=== PATIENT | female | born 1990 | race African-American/Black ===

== ENCOUNTER 2017-07-31 15:05 | Emergency (ER) | payer OTHER ==
[~2017-07-31] VITALS: Ht 167.6 cm; Wt 65.8 kg
[~2017-07-31 15:05] MED LIST: CEPH-264 PO; METO10TA81 PO; POLY17PO29 PO
[2017-07-31 15:34] LABS: BILIRUBIN,URINE NEGATIVE (NEG); GLUCOSE,URINE NEGATIVE (NEG); NITRITE,URINE NEGATIVE (NEG); PH,URINE 6.5; PROTEIN,URINE NEGATIVE (NEG-TRACE); UROBILINOGEN,URINE 0.2 mg/dL (0.2 mg/dL)
[2017-07-31 15:48] LABS: BACTERIA,URINE MODERATE /HPF (0-FEW); RBC,URINE 0 /HPF (0-2); SQUAMOUS EPITHELIAL CELL,UR OCC /LPF
[2017-07-31] MEDS ORDERED: IV NORMAL SALINE 1000ML BAG 1,000 ML IV ONE (16:00)
[2017-07-31 16:12] LABS: BASO % 0 % (0-3); EOS % 0 % (0-3); HEMATOCRIT 34.7 % (36.0-47.0); HEMOGLOBIN 11.4 g/dL (12.0-15.5); LYMPH # 1.3 x10^3/uL (1.0-4.8); LYMPH % 18 % (24-48); MEAN CORPUSCULAR HEMOGLOBIN 27 pg (25-35); MEAN CORPUSCULAR HGB CONC 33 g/dL (31-37); MEAN CORPUSCULAR VOLUME 82 fL (79-100); MONO % 10 % (0-9); NEUT % 72 % (31-73); PLATELET COUNT 326 x10^3/uL (140-400); RED BLOOD COUNT 4.21 x10^6/uL (3.50-5.40); WHITE BLOOD COUNT 7.4 x10^3/uL (4.0-11.0)
[2017-07-31 16:27] LABS: CALCIUM 8.9 mg/dL (8.5-10.1); CREATININE 0.8 mg/dL (0.6-1.0); GFR 106.6; POTASSIUM 3.3 mmol/L (3.5-5.1)
[2017-07-31 16:32] LABS: ALBUMIN 3.1 g/dL (3.4-5.0); ALBUMIN/GLOBULIN RATIO 0.8 (1.0-1.7); TOTAL BILIRUBIN 0.2 mg/dL (0.2-1.0); TOTAL PROTEIN 7.1 g/dL (6.4-8.2)
--- NOTE | 2017-07-31 17:26 | RAD ---
OB ultrasound less than 14 weeks 07/31/2017 Clinical history: First trimester with abdominal pain. Technique: Using the distended urinary bladder as a sonographic window, a real-time ultrasound examination of the pelvis was performed. Multiple images were obtained. FINDINGS: A gestational sac is seen within the endometrial canal near the fundus/body of the uterus. Within this gestational sac a yolk sac and associated embryonic pole are seen. The CRL of this embryonic pole measures 1 cm. This corresponds to an estimated gestational age by ultrasound of 7 weeks 1 day plus or minus a standard deviation of 4 days. The estimated date of delivery by ultrasound is 03/18/2018. Embryonic cardiac activity is seen with a heart rate of 150 bpm. The uterus is otherwise within normal limits. Both ovaries are within normal limits in size and echogenicity. The right ovary measures 3.9 x 2.5 x 1.9 cm in longitudinal, transverse, and AP dimensions. The left ovary measures 4.2 x 3.4 x 1.5 cm in size. A small amount of free fluid is seen adjacent to the left ovary. IMPRESSION: Single living IUP with an estimated gestational age by ultrasound of 7 weeks 1 day plus or minus a standard deviation of 4 days. The estimated date of delivery by ultrasound of 03/18/2018. Electronically signed by: Jake Reich MD (07/31/2017 5:22 PM) [facility]
[2017-07-31 18:00] VITALS: BP 95/51
[2017-07-31] MEDS ORDERED: ONDA4TAB7 PO (18:06)
[2017-07-31] MEDS ORDERED: CEPH-264 PO (18:06)
[2017-07-31] MEDS ORDERED: METR500T8 PO (18:06)
[2017-07-31] MEDS ORDERED: DOCU-109 PO (18:06)
[2017-07-31] MEDS ORDERED: metroNIDAZOLE 500 MG TABLET PO ONE (18:15)
[2017-07-31] MEDS ORDERED: CEPHALEXIN 250 MG CAPSULE. PO ONE (18:15)
--- NOTE | 2017-07-31 18:38 | ED.ADGEN ---
Past Medical History Past Medical History: No Pertinent History Past Surgical History: No Surgical History Alcohol Use: None Drug Use: None Adult General Chief Complaint Chief Complaint: ABDOMINAL PAIN IN HPI HPI Patient is a 26 year old woman, , approximately 7 weeks by dates , who presents to the emergency department with a complaint of abdominal cramping, vaginal discharge, and dysuria for the past 5-7 days. 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 She denies any bleeding, any passage of fluid or tissue. Denies any back pain, any fevers or chills, any injuries, states that she has intermittent nausea and occasional vomiting, and also constipation. She denies any, locations with her previous . She delivered vaginally without issue. She states she is taking vitamins. States she was last sexually active about a week ago. Does have a history of bacterial vaginosis and urinary tract infection, states "it feels like it could be that again". No concerns for STD exposures, no history of other infections. She last had a full Pap smear and pelvic examination performed in April of this year. No concerning findings identified at that time. Denies any other health history, or other complaints. Review of Systems Review of Systems Constitutional: Denies fever or chills. [] Eyes: Denies change in visual acuity. [] HENT: Denies nasal congestion or sore throat. [] Respiratory: Denies cough or shortness of breath. [] Cardiovascular: Denies chest pain or edema. [] GI: Lower abdominal cramping, associated with dysuria, discharge from the vagina , occasional nausea and vomiting, no bloody stools or diarrhea. Positive for constipation. : Denies dysuria. [] Musculoskeletal: Denies back pain or joint pain. [] Integument: Denies rash. [] Neurologic: Denies headache, focal weakness or sensory changes. [] Endocrine: Denies polyuria or polydipsia. [] Lymphatic: Denies swollen glands. [] Psychiatric: Denies depression or anxiety. [] Current Medications Current Medications Current Medications Medications (Trade) Dose Ordered Sig/Armaan Start Time Stop Time Status Last Admin Dose Admin Cephalexin HCl (Keflex) 500 mg 1X ONCE 07/31/17 18:15 07/31/17 18:16 DC 07/31/17 18:04 500 MG Metronidazole (Flagyl) 500 mg 1X ONCE 07/31/17 18:15 07/31/17 18:16 DC 07/31/17 18:04 500 MG Sodium Chloride 1,000 ml @ 1,000 mls/hr 1X ONCE 07/31/17 16:00 07/31/17 16:59 DC 07/31/17 16:00 1,000 MLS/HR Allergies Allergies Allergies Coded Allergies Type Severity Reaction Last Updated Verified No Known Drug Allergies 08/04/16 No Physical Exam Physical Exam Constitutional: Well developed, well nourished, no acute distress, non-toxic appearance. [] HENT: Normocephalic, atraumatic, bilateral external ears normal, oropharynx moist, no oral exudates, nose normal. [] Eyes: PERRLA, EOMI, conjunctiva normal, no discharge. [] Neck: Normal range of motion, no tenderness, supple, no stridor. [] Cardiovascular:Heart rate regular rhythm, no murmur [] Lungs & Thorax: Bilateral breath sounds clear to auscultation [] Abdomen: Bowel sounds normal, soft, no tenderness, no masses, no pulsatile masses. [] Skin: Warm, dry, no erythema, no rash. [] Back: No tenderness, no CVA tenderness. [] Extremities: No tenderness, no cyanosis, no clubbing, ROM intact, no edema. [] Neurologic: Alert and oriented X 3, normal motor function, normal sensory function, no focal deficits noted. [] Psychologic: Affect normal, judgement normal, mood normal. [] Current Patient Data Vital Signs Vital Signs Date Time Temp Pulse Resp B/P (MAP) Pulse Ox O2 Delivery O2 Flow Rate FiO2 07/31/17 18:00 83 95/51 (66) Room Air 07/31/17 17:00 100 07/31/17 15:15 98.7 16 98.7 Lab Values Laboratory Tests Test 07/31/17 15:21 07/31/17 15:23 07/31/17 15:28 Urine Color Yellow Urine Clarity Clear Urine pH 6.5 Urine Specific [place] 1.020 Urine Protein Negative mg/dL (NEG-TRACE) Urine Glucose (UA) Negative mg/dL (NEG) Urine Ketones (Stick) Negative mg/dL (NEG) Urine Blood Negative (NEG) Urine Nitrite Negative (NEG) Urine Bilirubin Negative (NEG) Urine Urobilinogen Dipstick 0.2 mg/dL (0.2 mg/dL) Urine Leukocyte Esterase Negative (NEG) Urine RBC 0 /HPF (0-2) Urine WBC 1-4 /HPF (0-4) Urine Squamous Epithelial Cells Occ /LPF Urine Bacteria Moderate /HPF (0-FEW) Urine Mucus Mod /LPF POC Urine HCG, Qualitative Hcg positive (Negative) White Blood Count 7.4 x10^3/uL (4.0-11.0) Red Blood Count 4.21 x10^6/uL (3.50-5.40) Hemoglobin 11.4 g/dL (12.0-15.5) L Hematocrit 34.7 % (36.0-47.0) L Mean Corpuscular Volume 82 fL (79-100) Mean Corpuscular Hemoglobin 27 pg (25-35) Mean Corpuscular Hemoglobin Concent 33 g/dL (31-37) Red Cell Distribution Width 14.0 % (11.5-14.5) Platelet Count 326 x10^3/uL (140-400) Neutrophils (%) (Auto) 72 % (31-73) Lymphocytes (%) (Auto) 18 % (24-48) L Monocytes (%) (Auto) 10 % (0-9) H Eosinophils (%) (Auto) 0 % (0-3) Basophils (%) (Auto) 0 % (0-3) Neutrophils # (Auto) 5.3 x10^3uL (1.8-7.7) Lymphocytes # (Auto) 1.3 x10^3/uL (1.0-4.8) Monocytes # (Auto) 0.7 x10^3/uL (0.0-1.1) Eosinophils # (Auto) 0.0 x10^3/uL (0.0-0.7) Basophils # (Auto) 0.0 x10^3/uL (0.0-0.2) Maternal Serum HCG Beta Subunit [id number] mIU/mL (0-5) H Sodium Level 138 mmol/L (136-145) Potassium Level 3.3 mmol/L (3.5-5.1) L Chloride Level 103 mmol/L (98-107) Carbon Dioxide Level 23 mmol/L (21-32) Anion Gap 12 (6-14) Blood Urea Nitrogen 9 mg/dL (7-20) Creatinine 0.8 mg/dL (0.6-1.0) Estimated GFR (Cockcroft-Gault) 106.6 BUN/Creatinine Ratio 11 (6-20) Glucose Level 92 mg/dL (70-99) Calcium Level 8.9 mg/dL (8.5-10.1) Total Bilirubin 0.2 mg/dL (0.2-1.0) Aspartate Amino Transferase (AST) 15 U/L (15-37) Alanine Aminotransferase (ALT) 21 U/L (14-59) Alkaline Phosphatase 83 U/L (46-116) Total Protein 7.1 g/dL (6.4-8.2) Albumin 3.1 g/dL (3.4-5.0) L Albumin/Globulin Ratio 0.8 (1.0-1.7) L Lipase 141 U/L (73-393) Laboratory Tests 07/31/17 15:28 Laboratory Tests 07/31/17 15:28 Microbiology 07/31/17 Wet Prep - Final, Complete EKG EKG Not indicated.[] Radiology/Procedures Radiology/Procedures [][facility] [address] [place] [address] IMAGING REPORT Signed PATIENT: NEIL ABURTO ACCOUNT: [id number] : 1990 LOCATION: ER AGE: 26 SEX: F EXAM STATUS: REG ER ORD. PHYSICIAN: BRUCE ALCOCER DO REASON: abd pain preg PROCEDURE: OB < 14 WKS OB ultrasound less than 14 weeks 07/31/2017 Clinical history: First trimester with abdominal pain. Technique: Using the distended urinary bladder as a sonographic window, a real-time ultrasound examination of the pelvis was performed. Multiple images were obtained. FINDINGS: A gestational sac is seen within the endometrial canal near the fundus/body of the uterus. Within this gestational sac a yolk sac and associated embryonic pole are seen. The CRL of this embryonic pole measures 1 cm. This corresponds to an estimated gestational age by ultrasound of 7 weeks 1 day plus or minus a standard deviation of 4 days. The estimated date of delivery by ultrasound is 03/18/2018. Embryonic cardiac activity is seen with a heart rate of 150 bpm. The uterus is otherwise within normal limits. Both ovaries are within normal limits in size and echogenicity. The right ovary measures 3.9 x 2.5 x 1.9 cm in longitudinal, transverse, and AP dimensions. The left ovary measures 4.2 x 3.4 x 1.5 cm in size. A small amount of free fluid is seen adjacent to the left ovary. IMPRESSION: Single living IUP with an estimated gestational age by ultrasound of 7 weeks 1 day plus or minus a standard deviation of 4 days. The estimated date of delivery by ultrasound of 03/18/2018. Electronically signed by: Jake Reich MD (07/31/2017 5:22 PM) [facility] DICTATED and SIGNED BY: JAKE REICH MD DATE: 07/31/17 1718 CC: BRUCE ALCOCER DO; CLIVE YOUNG ~ Course & Med Decision Making Course & Med Decision Making Pertinent Labs and Imaging studies reviewed. (See chart for details) Patient well-appearing, not experiencing any pain during my evaluation, os is closed, pelvic examination obtained without issue, reveals evidence of clue cells present with bacterial vaginosis, also noted to have bacteria in the urine. Patient's ultrasound revealed a single intrauterine with heart tones in the 150s, at 7 weeks 1 day estimated. Printout of ultrasound results given to patient. Patient was treated with metronidazole and Keflex in the ED, additionally, advised use of Zofran, Colace, and importance of staying well-hydrated. Noted to have a potassium of 3.3, given dietary recommendations, instructed discuss this with her primary care provider, also discussed utility of small meals throughout the day. To continue vitamins. Given instructions on first trimester abdominal pain. Patient tolerated first dose medication the ED without issue, discharged home with prescriptions, instructions, precautions as stated, to follow-up on Thursday with her primary care provider, and to return to the ED with concerning symptoms as stated. Dragon Disclaimer Dragon Disclaimer This electronic medical record was generated, in whole or in part, using a voice recognition dictation system. Departure Impression: Primary Impression: Bacterial vaginosis Additional Impressions: Constipation UTI (urinary tract infection) Abdominal pain during in first trimester Disposition: HOME, SELF-CARE Condition: IMPROVED Scripts Docusate Sodium (COLACE) 100 Mg Capsule 100 MG PO BID, #30 CAP Prov: BRUCE ALCOCER DO 07/31/17 Ondansetron Hcl (ZOFRAN) 4 Mg Tablet 1 TAB PO PRN Q8HRS Y for NAUSEA, #12 TAB Prov: BRUCE ALCOCER DO 07/31/17 Cephalexin (KEFLEX) 500 Mg Capsule 1 CAP PO BID, #14 CAP Prov: BRUCE ALCOCER DO 07/31/17 Metronidazole (METRONIDAZOLE) 500 Mg Tablet 1 TAB PO BID, #14 TAB Prov: BRUCE ALCOCER DO 07/31/17 Problem Qualifiers BRUCE ALCOCER DO Jul 31, 2017 18:37
== END 2017-07-31 18:43 | disposition home or self-care (01) ==
LOC: ER 15:05
DX: O23.41 Unspecified infection of urinary tract in pregnancy, first trimester (principal); O23.591 Infection of other part of genital tract in pregnancy, first trimester; N76.0 Acute vaginitis; B96.89 Other specified bacterial agents as the cause of diseases classified elsewhere; K59.00 Constipation, unspecified; Z3A.01 Less than 8 weeks gestation of pregnancy
CPT/HCPCS: 36415; 76801; 80053; 81001; 81025; 83690; 84702; 85025; 87086; 87491; 87591; 96360; 96361; 99285; J7030; Q0111

== ENCOUNTER 2019-02-15 21:59 | Emergency (ER) | payer SELFPAY ==
[~2019-02-15] VITALS: Ht 170.2 cm; Wt 68.3 kg
[~2019-02-15 21:59] MED LIST changes: +DOCU-109 PO; +METR-34 PO; +ONDA4TAB7 PO
[2019-02-15 22:25] VITALS: BP 137/60
[2019-02-15 22:30] LABS: BILIRUBIN,URINE NEGATIVE (NEG); CLARITY,URINE CLEAR; COLOR,URINE YELLOW; NITRITE,URINE NEGATIVE (NEG); PH,URINE 5.5; PROTEIN,URINE 30 mg/dL (NEG-TRACE); UROBILINOGEN,URINE 0.2 mg/dL (0.2 mg/dL)
[2019-02-15 22:49] LABS: BACTERIA,URINE FEW /HPF (0-FEW); SQUAMOUS EPITHELIAL CELL,UR MOD /LPF
--- NOTE | 2019-02-15 23:29 | RAD ---
OB TRANSVAG History: Abdominal pain in Comparison: None. Findings: Multiple transvaginal sonographic images of pelvis are submitted. Uterus measured 8.9 x 4.5 x 4.5 cm. There is a focus of hypoechogenicity in the uterus. If this is indeed a gestational sac, mean sac dimension of 0.5 cm corresponds with 5 weeks 2 days. Adjusted ultrasound age is 5 weeks 2 days with estimated delivery date of 10/16/2019. LMP age is 5 weeks 3 days with estimated delivery date of 10/15/2019. No cardiac activity or pole is this time. No yolk sac is visualized. Left ovary measured 1.9 x 2.2 x 1.5 cm with normal low resistance vascularity. Right ovary measured 2.1 x 3.5 x 2.4 cm with normal low resistance vascularity. There is a hypoechoic lesion of the right ovary about 1.7 x 1.3 x 1.8 cm. There is minimal free fluid in the pelvis. Impression: 1. There is a focus of hypoechogenicity in the uterus. This could be an early gestational sac although no visible yolk sac or pole at this time for which correlation with quantitative beta hCG values and short-term follow-up imaging if needed is recommended. 2. There is right ovarian cyst. There is minimal free fluid. Electronically signed by: Oleg Merchant MD (02/15/2019 11:26 PM) [facility]
--- NOTE | 2019-02-16 00:04 | PHYS DOC ---
Past Medical History Past Medical History: No Pertinent History (AILEEN COLLADO APRN) Past Surgical History: No Surgical History (AILEEN COLLADO APRN) Alcohol Use: None Drug Use: None (AILEEN COLLADO APRN) Adult General Chief Complaint Chief Complaint: ABDOMINAL PAIN HPI HPI Patient is a 28 year old female who presents to the ED today complaining of 8 out of 10 low back pain and low abdominal cramping that began a week ago. P atient states symptoms are intermittent. Denies any concerns for STDs. Denies any nausea vomiting, denies any vaginal bleeding, denies any vaginal discharge, denies any chance she is though she states her last menstrual cycle was around January 08, 2019. She states her cycles are irregular. (AILEEN COLLADO APRN) Review of Systems Review of Systems Constitutional: Denies fever or chills [] Eyes: Denies change in visual acuity, redness, or eye pain [] HENT: Denies nasal congestion or sore throat [] Respiratory: Denies cough or shortness of breath [] Cardiovascular: No additional information not addressed in HPI [] GI: Reports abdominal cramping, denies nausea, vomiting, bloody stools or diarrhea [] : Denies dysuria or hematuria [] Musculoskeletal reports back pain, Integument: Denies rash or skin lesions [] Neurologic: Denies headache, focal weakness or sensory changes [] All other systems were reviewed and found to be within normal limits, except as documented in this note. (AILEEN COLLADO APRN) Allergies Allergies Allergies Coded Allergies Type Severity Reaction Last Updated Verified No Known Drug Allergies 08/04/16 No (MOE MENEZES MD) Physical Exam Physical Exam Constitutional: Well developed, well nourished, no acute distress, non-toxic appearance. [] HENT: Normocephalic, atraumatic, bilateral external ears normal, oropharynx moist, no oral exudates, nose normal. [] Eyes: PERRLA, EOMI, conjunctiva normal, no discharge. [] Neck: Normal range of motion, no tenderness, supple, no stridor. [] Cardiovascular:Heart rate regular rhythm, no murmur [] Lungs & Thorax: Bilateral breath sounds clear to auscultation [] Abdomen: Bowel sounds normal, soft, no tenderness, no masses, no pulsatile masses. [] Skin: Warm, dry, no erythema, no rash. [] Back: No tenderness, no CVA tenderness. [] Extremities: No tenderness, no cyanosis, no clubbing, ROM intact, no edema. [] Neurologic: Alert and oriented X 3, normal motor function, normal sensory function, no focal deficits noted. [] Psychologic: Affect normal, judgement normal, mood normal. [] (AILEEN COLLADO APRN) Current Patient Data Vital Signs Vital Signs Date Time Temp Pulse Resp B/P (MAP) Pulse Ox O2 Delivery O2 Flow Rate FiO2 02/15/19 22:25 98.6 95 16 137/60 (85) 99 Room Air 98.6 (MOE MENEZES MD) Lab Values Laboratory Tests Test 02/15/19 22:08 02/15/19 22:16 Urine Collection Type Unknown Urine Color Yellow Urine Clarity Clear Urine pH 5.5 Urine Specific [place] >=1.030 Urine Protein 30 mg/dL (NEG-TRACE) Urine Glucose (UA) Negative mg/dL (NEG) Urine Ketones (Stick) Negative mg/dL (NEG) Urine Blood Negative (NEG) Urine Nitrite Negative (NEG) Urine Bilirubin Negative (NEG) Urine Urobilinogen Dipstick 0.2 mg/dL (0.2 mg/dL) Urine Leukocyte Esterase Trace (NEG) Urine RBC 1-2 /HPF (0-2) Urine WBC 1-4 /HPF (0-4) Urine Squamous Epithelial Cells Mod /LPF Urine Bacteria Few /HPF (0-FEW) Urine Mucus Marked /LPF POC Urine HCG, Qualitative Hcg positive (Negative) (MOE MENEZES MD) EKG EKG [] (AILEEN COLLADO APRN) Radiology/Procedures Radiology/Procedures []PROCEDURE: OB TRANSVAG OB TRANSVAG History: Abdominal pain in Comparison: None. Findings: Multiple transvaginal sonographic images of pelvis are submitted. Uterus measured 8.9 x 4.5 x 4.5 cm. There is a focus of hypoechogenicity in the uterus. If this is indeed a gestational sac, mean sac dimension of 0.5 cm corresponds with 5 weeks 2 days. Adjusted ultrasound age is 5 weeks 2 days with estimated delivery date of 10/16/2019. LMP age is 5 weeks 3 days with estimated delivery date of 10/15/2019. No cardiac activity or pole is this time. No yolk sac is visualized. Left ovary measured 1.9 x 2.2 x 1.5 cm with normal low resistance vascularity. Right ovary measured 2.1 x 3.5 x 2.4 cm with normal low resistance vascularity. There is a hypoechoic lesion of the right ovary about 1.7 x 1.3 x 1.8 cm. There is minimal free fluid in the pelvis. Impression: 1. There is a focus of hypoechogenicity in the uterus. This could be an early gestational sac although no visible yolk sac or pole at this time for which correlation with quantitative beta hCG values and short-term follow-up imaging if needed is recommended. 2. There is right ovarian cyst. There is minimal free fluid. Electronically signed by: Aamir Sung MD (02/15/2019 11:26 PM) [facility] DICTATED and SIGNED BY: AAMIR SUNG MD DATE: 02/15/19 2326 (AILEEN COLLADO APRN) Course & Med Decision Making Course & Med Decision Making Pertinent Labs and Imaging studies reviewed. (See chart for details) This is a 28-year-old female patient presented to the ED today with complaints of abdominal cramping and low back pain, symptoms for week. Last menstrual cycle was January 08, 2019, patient denies any chance she is , positive urine hCG, urine analysis is noted for trace amount of leukocytes though the urine is contaminated with squamous cells epithelium. Urine also shows patient is dehydrated. Patient was encouraged to push fluids. OB ultrasound was noted for IUP, 5 weeks 2 days,no visible yolk sac or pole at this time for which correlation with quantitative beta hCG values and short-term follow-up imaging if needed is recommended. I had ordered labs on patient, initially she was very disappointed with the news of being because she already has 2 children. When she had the ultrasound done and was informed she is 5 weeks 2 days , she was happy with the news and requested to be discharged before the labs are done. Encouraged her to follow-up with her own [employer] SAL[employer] in the course of 7 days. Instructed to take Tylenol as needed for pain. (AILEEN COLLADO APRN) Course & Med Decision Making Staff Physician Addendum: I was working in the ER during the course of this patient's visit. I was available for consultation as needed, but I was not directly involved in the care of this patient. (MOE MENEZES MD) Dragon Disclaimer Dragon Disclaimer This electronic medical record was generated, in whole or in part, using a voice recognition dictation system. (AILEEN COLLADO APRN) Departure Departure Impression: Primary Impression: Abdominal pain in Additional Impressions: Low back pain during Disposition: 01 HOME, SELF-CARE Condition: STABLE Referrals: NO PCP (PCP) Follow-up in 1-2 weeks Patient Instructions: ABCs of Additional Instructions: You were evaluated in the emergency room, your test was positive. Congratulations. Please follow up with an OBGYN as soon as you can. Follow up with take Tylenol as needed for pain. Return to the emergency room at any point symptoms worsen. Consider vitamins. Problem Qualifiers Primary Impression: Abdominal pain in Trimester: first trimester Qualified Codes: O26.891 - Other specified related conditions, first trimester; R10.9 - Unspecified abdominal pain Additional Impressions: Low back pain during Trimester: first trimester Qualified Codes: O26.891 - Other specified related conditions, first trimester; M54.5 - Low back pain Weeks of gestation: less than 8 weeks Qualified Codes: Z3A.01 - Less than 8 weeks gestation of AILEEN COLLADO APRN Feb 16, 2019 00:04 MOE MENEZES MD Feb 16, 2019 21:43
== END 2019-02-16 00:32 | disposition home or self-care (01) ==
LOC: ER 21:59
DX: O34.81 Maternal care for other abnormalities of pelvic organs, first trimester (principal); N83.201 Unspecified ovarian cyst, right side; M54.5 Low back pain; E86.0 Dehydration; Z3A.01 Less than 8 weeks gestation of pregnancy
CPT/HCPCS: 76817; 81001; 81025; 99285-25

== ENCOUNTER 2019-03-07 12:23 | Emergency (ER) | payer OTHER ==
[~2019-03-07] VITALS: Ht 167.6 cm; Wt 69.2 kg
[2019-03-07 13:00] VITALS: BP 111/57
--- NOTE | 2019-03-07 13:02 | PHYS DOC ---
Past Medical History Past Medical History: No Pertinent History Past Surgical History: No Surgical History Alcohol Use: None Drug Use: None Adult General Chief Complaint Chief Complaint: VAGINAL BLEEDING [facility] HPI Patient is a 28 year old female presents to the ED complaining of rectal bleeding after having a bowel movement this morning. Patient is 8 weeks . . States that she has been constipated and had a large bowel movement today and had some rectal bleeding afterwards. States that the bleeding was on the toliet paper with a couple drops in the toilet. No active bleeding and no vaginal bleeding. Patient is unsure if she has hemorrhoids. Denies vaginal discharge/vaginal bleeding, dysuria, hematuria, abdominal pain, nausea/vomiting, diarrhea, fever or headache. Review of Systems Review of Systems Constitutional: Denies fever or chills [] Eyes: Denies change in visual acuity, redness, or eye pain [] HENT: Denies nasal congestion or sore throat [] Respiratory: Denies cough or shortness of breath [] Cardiovascular: No additional information not addressed in HPI [] GI: Denies abdominal pain, nausea, vomiting, bloody stools or diarrhea [] : Denies dysuria or hematuria [] Musculoskeletal: Denies back pain or joint pain [] Integument: Denies rash or skin lesions [] Neurologic: Denies headache, focal weakness or sensory changes [] All other systems were reviewed and found to be within normal limits, except as documented in this note. Allergies Allergies Allergies Coded Allergies Type Severity Reaction Last Updated Verified No Known Drug Allergies 08/04/16 No Physical Exam Physical Exam Constitutional: Well developed, well nourished, no acute distress, non-toxic appearance. [] HENT: Normocephalic, atraumatic Cardiovascular:Heart rate regular rhythm, no murmur [] Lungs & Thorax: Bilateral breath sounds clear to auscultation [] Abdomen: Bowel sounds normal, soft, no tenderness, no masses, no pulsatile masses. [] Rectal: External hemorrhoid. No thrombosis. No bleeding. Skin: Warm, dry, no erythema, no rash. [] Back: No tenderness, no CVA tenderness. [] Extremities: No tenderness, no cyanosis, no clubbing, ROM intact, no edema. [] Neurologic: Alert and oriented X 3, normal motor function, normal sensory function, no focal deficits noted. [] Psychologic: Affect normal, judgement normal, mood normal. [] Current Patient Data Vital Signs Vital Signs Date Time Temp Pulse Resp B/P (MAP) Pulse Ox O2 Delivery O2 Flow Rate FiO2 03/07/19 13:00 70 16 111/57 (75) 99 Room Air 03/07/19 12:25 98.1 98.1 Lab Values Laboratory Tests Test 03/07/19 12:45 Urine Collection Type Unknown Urine Color Yellow Urine Clarity Clear Urine pH 5.5 Urine Specific [place] >=1.030 Urine Protein Negative mg/dL (NEG-TRACE) Urine Glucose (UA) Negative mg/dL (NEG) Urine Ketones (Stick) Negative mg/dL (NEG) Urine Blood Negative (NEG) Urine Nitrite Negative (NEG) Urine Bilirubin Negative (NEG) Urine Urobilinogen Dipstick 0.2 mg/dL (0.2 mg/dL) Urine Leukocyte Esterase Negative (NEG) Urine RBC Occ /HPF (0-2) Urine WBC 1-4 /HPF (0-4) Urine Squamous Epithelial Cells Mod /LPF Urine Bacteria Few /HPF (0-FEW) Urine Mucus Marked /LPF EKG EKG [] Radiology/Procedures Radiology/Procedures [] Course & Med Decision Making Course & Med Decision Making Pertinent Labs and Imaging studies reviewed. (See chart for details) []Discussed lab findings with patient. Patient's exam shows that she has external hemorrhoid. No thrombosis or active bleeding. Patient had no vaginal bleeding or related symptoms. We'll treat outpatient with Anusol. Discussed symptomatic treatment and follow-up with [facility] [facility] this week. Provided contact information/education. Discussed reasons to return to the ED. Patient understands and agrees with plan. Dragon Disclaimer Dragon Disclaimer This electronic medical record was generated, in whole or in part, using a voice recognition dictation system. Departure Departure Impression: Primary Impression: Hemorrhoids Disposition: HOME, SELF-CARE Condition: STABLE Referrals: NO PCP (PCP) KYLE HAMMONDS Jr, MD Patient Instructions: Hemorrhoids Scripts Hydrocortisone (ANUSOL-HC) 30 Gm Cream..g. 1 SOFI TP BID, #30 GM 0 Refills Prov: GIULIA EMERY 03/07/19 GIULIA EMERY Mar 07, 2019 13:02
[2019-03-07 13:10] LABS: BILIRUBIN,URINE NEGATIVE (NEG); CLARITY,URINE CLEAR; COLOR,URINE YELLOW; NITRITE,URINE NEGATIVE (NEG); PH,URINE 5.5; PROTEIN,URINE NEGATIVE (NEG-TRACE); UROBILINOGEN,URINE 0.2 mg/dL (0.2 mg/dL)
[2019-03-07 13:19] LABS: SQUAMOUS EPITHELIAL CELL,UR MOD /LPF
[2019-03-07 13:21] LABS: BACTERIA,URINE FEW /HPF (0-FEW); RBC,URINE OCC /HPF (0-2)
[2019-03-07] MEDS ORDERED: HYDR30CR61 TP (13:51)
== END 2019-03-07 13:55 | disposition home or self-care (01) ==
LOC: ER 12:23
DX: O22.41 Hemorrhoids in pregnancy, first trimester (principal); Z3A.08 8 weeks gestation of pregnancy
CPT/HCPCS: 81001; 99283

== ENCOUNTER 2021-01-16 23:08 | Emergency (ER) | payer OTHER ==
[~2021-01-16] VITALS: Ht 170.2 cm; Wt 65.9 kg
[~2021-01-16 23:08] MED LIST changes: +HYDR30CR61 TP
[2021-01-16 23:16] VITALS: BP 103/59
== END 2021-01-17 01:55 | disposition left against medical advice (07) ==
LOC: ER 23:08
DX: R11.2 Nausea with vomiting, unspecified (principal); R10.30 Lower abdominal pain, unspecified; Z53.21 Procedure and treatment not carried out due to patient leaving prior to being seen by health care provider

== ENCOUNTER 2021-08-05 15:59 | Emergency (ER) | payer OTHER ==
[~2021-08-05] VITALS: Ht 170.2 cm; Wt 69.3 kg
[2021-08-05 17:15] VITALS: BP 110/73
[2021-08-05 18:29] LABS: INFLUENZA A PATIENT NEGATIVE (NEGATIVE); INFLUENZA B PATIENT NEGATIVE (NEGATIVE)
--- NOTE | 2021-08-05 18:50 | PHYS DOC ---
Past Medical History Past Medical History: No Pertinent History Past Surgical History: No Surgical History Smoking Status: Never Smoker Alcohol Use: Rarely Drug Use: None General Adult EDM: Chief Complaint: FLU SYMPTOM HPI: HPI: Patient is a 31 year old female with no significant medical problems presenting to the ED today complaining of nasal congestion for 3 days. Also complaining of sore throat, slight cough for 3 days. States yesterday she lost her sense of taste and smell. Denies any fever. Review of Systems: Review of Systems: Constitutional: Denies fever or chills. [] Eyes: Denies change in visual acuity. [] HENT: Reports sore throat and nasal congestion Respiratory: Reports slight cough, denies shortness of breath. [] Cardiovascular: Denies chest pain or edema. [] GI: Denies abdominal pain, nausea, vomiting, bloody stools or diarrhea. [] : Denies dysuria. [] Musculoskeletal: Denies back pain or joint pain. [] Integument: Denies rash. [] Neurologic: Denies headache, focal weakness or sensory changes. [] Psychiatric: Denies depression or anxiety. [] Heart Score: C/O Chest Pain: N/A Risk Factors: Risk Factors: DM, Current or recent (<one month) smoker, HTN, HLP, family history of CAD, obesity. Risk Scores: Score 0 - 3: 2.5% MACE over next 6 weeks - Discharge Home Score 4 - 6: 20.3% MACE over next 6 weeks - Admit for Clinical Observation Score 7 - 10: 72.7% MACE over next 6 weeks - Early Invasive Strategies Allergies: Allergies: Allergies Coded Allergies Type Severity Reaction Last Updated Verified No Known Drug Allergies 08/05/21 No Physical Exam: PE: Constitutional: Well developed, well nourished, no acute distress, non-toxic appearance. [] HENT: Normocephalic, atraumatic, bilateral external ears normal, oropharynx moist, no oral exudates, nose normal. [] Eyes: PERRLA, EOMI, conjunctiva normal, no discharge. [] Neck: Normal range of motion, no tenderness, supple, no stridor. [] Cardiovascular:Heart rate regular rhythm, no murmur [] Lungs & Thorax: Bilateral breath sounds clear to auscultation [] Abdomen: Bowel sounds normal, soft, no tenderness, no masses, no pulsatile masses. [] Skin: Warm, dry, no erythema, no rash. [] Back: No tenderness, no CVA tenderness. [] Extremities: No tenderness, no cyanosis, no clubbing, ROM intact, no edema. [] Neurologic: Alert and oriented X 3, normal motor function, normal sensory function, no focal deficits noted. [] Psychologic: Affect normal, judgement normal, mood normal. [] Current Patient Data: Labs: Laboratory Tests Test 08/05/21 17:47 Influenza Type A Antigen Negative (NEGATIVE) Influenza Type B Antigen Negative (NEGATIVE) Vital Signs: Vital Signs Date Time Temp Pulse Resp B/P (MAP) Pulse Ox O2 Delivery O2 Flow Rate FiO2 08/05/21 17:15 98.7 77 18 110/73 (85) 95 Room Air 98.7 EKG: EKG: [] Radiology/Procedures: Radiology/Procedures: [] Course & Med Decision Making: Course & Med Decision Making Pertinent Labs and Imaging studies reviewed. (See chart for details) This is a 31-year-old female patient presented to the ED today with nasal congestion, cough, sore throat, symptoms for 3 days. Yesterday she lost her sense of taste and smell. Patient is afebrile, O2 sats 95% and above on room air. Rapid Covid test is positive. Negative influenza A and B. Supportive care measures recommended. Discharged to home Slime Disclaimer: Slime Disclaimer: This electronic medical record was generated, in whole or in part, using a voice recognition dictation system. Departure Departure Impression: Primary Impression: Lab test positive for detection of COVID-19 virus Additional Impressions: Sore throat Anosmia URI (upper respiratory infection) Qualified Codes: J06.9 - Acute upper respiratory infection, unspecified Cough Disposition: HOME / SELF CARE / HOMELESS Condition: STABLE Referrals: NO PCP (PCP) Follow-up with your doctor in 1 week Patient Instructions: Viral Syndrome Additional Instructions: You are positive for COVID-19. We encourage you to rest, push fluids. Take Ty lenol or Motrin for pain or fever. Maintain good hand hygiene. Please quarantine yourself for 10 days. If you have to be around anyone ensure you wear your mask AILEEN COLLADO APRN Aug 05, 2021 18:50
== END 2021-08-05 19:14 | disposition home or self-care (01) ==
LOC: ER 15:59
DX: U07.1 COVID-19 (principal); J06.9 Acute upper respiratory infection, unspecified; R43.0 Anosmia
CPT/HCPCS: 87426; 87804; 99283

== ENCOUNTER 2021-11-02 09:32 | Emergency (ER) | payer OTHER ==
[~2021-11-02] VITALS: Ht 170.2 cm; Wt 67.0 kg
[2021-11-02 09:43] VITALS: BP 118/66
[2021-11-02 10:19] LABS: BILIRUBIN,URINE NEGATIVE (NEG); CLARITY,URINE CLEAR; COLOR,URINE YELLOW; NITRITE,URINE NEGATIVE (NEG); PROTEIN,URINE 100 mg/dL (NEG-TRACE); UROBILINOGEN,URINE 0.2 mg/dL (0.2 mg/dL)
[2021-11-02 10:20] LABS: BACTERIA,URINE FEW /HPF (0-FEW); WBC,URINE RARE /HPF (0-4)
[2021-11-02 10:39] LABS: BASO % 1 % (0-3); EOS % 1 % (0-3); HEMATOCRIT 37.2 % (36.0-47.0); HEMOGLOBIN 11.8 g/dL (12.0-15.5); LYMPH # 2.3 x10^3/uL (1.0-4.8); LYMPH % 39 % (24-48); MEAN CORPUSCULAR HEMOGLOBIN 27 pg (25-35); MEAN CORPUSCULAR HGB CONC 32 g/dL (31-37); MEAN CORPUSCULAR VOLUME 84 fL (79-100); MONO # 0.4 x10^3/uL (0.0-1.1); MONO % 7 % (0-9); NEUT # 3.2 x10^3/uL (1.8-7.7); NEUT % 53 % (31-73); PLATELET COUNT 381 x10^3/uL (140-400); RED BLOOD COUNT 4.45 x10^6/uL (3.50-5.40); RED CELL DISTRIBUTION WIDTH 14.5 % (11.5-14.5)
[2021-11-02 10:47] LABS: CALCIUM 8.5 mg/dL (8.5-10.1); CREATININE 0.9 mg/dL (0.6-1.0); GFR 89.6; POTASSIUM 3.6 mmol/L (3.5-5.1)
[2021-11-02 10:53] LABS: ALBUMIN 3.8 g/dL (3.4-5.0); ALBUMIN/GLOBULIN RATIO 1.2 (1.0-1.7); TOTAL BILIRUBIN 0.4 mg/dL (0.2-1.0); TOTAL PROTEIN 7.1 g/dL (6.4-8.2)
--- NOTE | 2021-11-02 11:30 | RAD ---
EXAMINATION: US OB TRANSVAGINAL (PELVIC ULTRASOUND) CLINICAL HISTORY: Vaginal bleeding in . TECHNIQUE: Sonography of the pelvis was performed by transvaginal technique. COMPARISON: None FINDINGS: Uterus: 8.7 x 4.2 x 3.5 cm - Myometrium: Normal sonographic appearance. No intrauterine gestational sac visualized. - Endometrium: 6 mm - Cervix: Normal Right ovary: 3.0 x 1.5 x 1.9 cm - Normal sonographic appearance and blood flow. Left ovary: 3.5 x 1.9 x 1.7 cm - Nonspecific slightly hypoechoic 1.7 cm focus. Normal blood flow. Pelvic free fluid: None. IMPRESSION: No evidence of intrauterine . Nonspecific 1.7 cm hypoechoic focus in the left ovary, recommend follow-up transvaginal ultrasound in 6-12 weeks. Electronically signed by: Marcell Guerrero DO (11/02/2021 11:27 AM) [facility]
--- NOTE | 2021-11-02 11:48 | PHYS DOC ---
Past Medical History Past Medical History: No Pertinent History Past Surgical History: No Surgical History Smoking Status: Never Smoker Alcohol Use: Occasionally Drug Use: None General Adult EDM: Chief Complaint: VAGINAL BLEEDING HPI: HPI: 31 yo (LMP 09/27/21) presents to the ED with complaints of " I feel like I started my period." Reports vaginal bleeding and abdominal cramping-normal flow, that started last night. Reports a positive home test. Primary care physician is Dr. Nubia Atkins. No routine medications. Has no past medical history. Denies any history of anemia or blood transfusions. History of 3 normal spontaneous vaginal deliveries with uncomplicated pregnancies. No history of blunt trauma to the abdomen or back. Patient denies any abnormal va ginal discharge, itching or odor. No history of STIs and is not concerned for STDs. Review of Systems: Review of Systems: Constitutional: Denies fever or chills. [] Eyes: Denies change in visual acuity. [] HENT: Denies nasal congestion or sore throat. [] Respiratory: Denies cough or shortness of breath. [] Cardiovascular: Denies chest pain or edema. [] GI: Denies vomiting, bloody stools or diarrhea. [] : Denies hematuria or flank pain Musculoskeletal: Denies back pain or joint pain. [] Integument: Denies rash or diaphoresis Neurologic: Denies headache, focal weakness or sensory changes. [] Endocrine: Denies polyuria or polydipsia. [] Lymphatic: Denies swollen glands. [] Psychiatric: Denies depression or anxiety. [] Heart Score: C/O Chest Pain: No Risk Factors: Risk Factors: DM, Current or recent (<one month) smoker, HTN, HLP, family history of CAD, obesity. Risk Scores: Score 0 - 3: 2.5% MACE over next 6 weeks - Discharge Home Score 4 - 6: 20.3% MACE over next 6 weeks - Admit for Clinical Observation Score 7 - 10: 72.7% MACE over next 6 weeks - Early Invasive Strategies Allergies: Allergies: Allergies Coded Allergies Type Severity Reaction Last Updated Verified No Known Drug Allergies 08/05/21 No Physical Exam: PE: Constitutional: Well developed, well nourished, no acute distress, non-toxic appearance. [] HENT: Normocephalic, atraumatic, bilateral external ears normal, oropharynx moist, no oral exudates, nose normal. [] Eyes: PERRLA, EOMI, conjunctiva normal, no discharge. [] Neck: Normal range of motion, no tenderness, supple, no stridor. [] Cardiovascular:Heart rate regular rhythm, no murmur [] Lungs & Thorax: Bilateral breath sounds clear to auscultation [] Abdomen: Bowel sounds normal, soft, no tenderness, no masses, no pulsatile masses. [] Skin: Warm, dry, no erythema, no rash. [] Back: No tenderness, no CVA tenderness. [] Extremities: No tenderness, no cyanosis, no clubbing, ROM intact, no edema. [] Neurologic: Alert and oriented X 3, normal motor function, normal sensory function, no focal deficits noted. [] Psychologic: Affect normal, judgement normal, mood normal. [] Current Patient Data: Labs: Laboratory Tests Test 11/02/21 09:50 11/02/21 09:58 11/02/21 10:04 11/02/21 10:20 Urine Collection Type Unknown Urine Color Yellow Urine Clarity Clear Urine pH 6.0 (<5.0-8.0) Urine Specific [place] >=1.030 (1.000-1.030) Urine Protein 100 mg/dL (NEG-TRACE) Urine Glucose (UA) Negative mg/dL (NEG) Urine Ketones (Stick) Negative mg/dL (NEG) Urine Blood Large (NEG) Urine Nitrite Negative (NEG) Urine Bilirubin Negative (NEG) Urine Urobilinogen Dipstick 0.2 mg/dL (0.2 mg/dL) Urine Leukocyte Esterase Negative (NEG) Urine RBC 6-10 /HPF (0-2) Urine WBC Rare /HPF (0-4) Urine Squamous Epithelial Cells Occ /LPF Urine Bacteria Few /HPF (0-FEW) Urine Mucus Slight /LPF POC Urine HCG, Qualitative Hcg positive (Negative) White Blood Count 6.0 x10^3/uL (4.0-11.0) Red Blood Count 4.45 x10^6/uL (3.50-5.40) Hemoglobin 11.8 g/dL (12.0-15.5) L Hematocrit 37.2 % (36.0-47.0) Mean Corpuscular Volume 84 fL (79-100) Mean Corpuscular Hemoglobin 27 pg (25-35) Mean Corpuscular Hemoglobin Concent 32 g/dL (31-37) Red Cell Distribution Width 14.5 % (11.5-14.5) Platelet Count 381 x10^3/uL (140-400) Neutrophils (%) (Auto) 53 % (31-73) Lymphocytes (%) (Auto) 39 % (24-48) Monocytes (%) (Auto) 7 % (0-9) Eosinophils (%) (Auto) 1 % (0-3) Basophils (%) (Auto) 1 % (0-3) Neutrophils # (Auto) 3.2 x10^3/uL (1.8-7.7) Lymphocytes # (Auto) 2.3 x10^3/uL (1.0-4.8) Monocytes # (Auto) 0.4 x10^3/uL (0.0-1.1) Eosinophils # (Auto) 0.0 x10^3/uL (0.0-0.7) Basophils # (Auto) 0.0 x10^3/uL (0.0-0.2) Maternal Serum HCG Beta Subunit 23 mIU/mL (0-5) H Sodium Level 146 mmol/L (136-145) H Potassium Level 3.6 mmol/L (3.5-5.1) Chloride Level 107 mmol/L (98-107) Carbon Dioxide Level 27 mmol/L (21-32) Anion Gap 12 (6-14) Blood Urea Nitrogen 13 mg/dL (7-20) Creatinine 0.9 mg/dL (0.6-1.0) Estimated GFR (Cockcroft-Gault) 89.6 BUN/Creatinine Ratio 14 (6-20) Glucose Level 83 mg/dL (70-99) Calcium Level 8.5 mg/dL (8.5-10.1) Total Bilirubin 0.4 mg/dL (0.2-1.0) Aspartate Amino Transferase (AST) 8 U/L (15-37) L Alanine Aminotransferase (ALT) 18 U/L (14-59) Alkaline Phosphatase 61 U/L (46-116) Total Protein 7.1 g/dL (6.4-8.2) Albumin 3.8 g/dL (3.4-5.0) Albumin/Globulin Ratio 1.2 (1.0-1.7) Laboratory Tests 11/02/21 10:04 Laboratory Tests 11/02/21 10:20 Vital Signs: Vital Signs Date Time Temp Pulse Resp B/P (MAP) Pulse Ox O2 Delivery O2 Flow Rate FiO2 11/02/21 09:43 98.1 83 16 118/66 (83) 98 Room Air 98.1 EKG: EKG: [] Radiology/Procedures: Radiology/Procedures: IMAGING REPORT Signed PATIENT: NEIL ABURTO ACCOUNT: [id number] : 1990 LOCATION: ER AGE: 31 SEX: F EXAM STATUS: PRE ER ORD. PHYSICIAN: CORNELL RICHARDSON DO REASON: vb in preg PROCEDURE: OB TRANSVAG EXAMINATION: US OB TRANSVAGINAL (PELVIC ULTRASOUND) CLINICAL HISTORY: Vaginal bleeding in . TECHNIQUE: Sonography of the pelvis was performed by transvaginal technique. COMPARISON: None FINDINGS: Uterus: 8.7 x 4.2 x 3.5 cm - Myometrium: Normal sonographic appearance. No intrauterine gestational sac visualized. - Endometrium: 6 mm - Cervix: Normal Right ovary: 3.0 x 1.5 x 1.9 cm - Normal sonographic appearance and blood flow. Left ovary: 3.5 x 1.9 x 1.7 cm - Nonspecific slightly hypoechoic 1.7 cm focus. Normal blood flow. Pelvic free fluid: None. IMPRESSION: No evidence of intrauterine . Nonspecific 1.7 cm hypoechoic focus in the left ovary, recommend follow-up transvaginal ultrasound in 6-12 weeks. Electronically signed by: Marcell Cuellar DO (11/02/2021 11:27 AM) [facility] DICTATED and SIGNED BY: MARCELL CUELLAR DO DATE: 11/02/21 [id number] 0 Course & Med Decision Making: Course & Med Decision Making Pertinent Labs and Imaging studies reviewed. (See chart for details) Concern for spontaneous in a well-appearing female, hemodynamically stable with no anemia. HCG 23. TVUS with no IUP. Patient is not a candidate for RhoGam. Urinalysis with blood but no leukocyte esterase or nitrates. Patient well-appearing, sitting in ED stretcher, in no distress. Will discharge home with strict ED return precautions were given for having a brisk vaginal bleeding, syncope, worsening pain or exertional dyspnea.. Encouraged urgent outpatient follow-up with PMD for routine care and consider [facility] evaluation- consider repeating hcg level in 1 week. Life-threatening processes were considered but are low suspicion at this time, given history, physical exam and ED workup. Pt was educated on all prescription medications and adverse effects. All patient's questions were answered and pt was stable at time of discharge. Life/limb-threatening differential includes but is not limited to, ectopic , septic , sepsis/infection (endometritis, sti/pid, cystitis, pyelonephritis, Charissa's gangrene or necrotizing fasciitis, abscess), ovarian torsion, ruptured hemorrhagic ovarian cyst, endometriosis, ureterolithiasis, thr ombophlebitis, hemorrhage/DIC, organ prolapse, abdominal aortic aneurysm, mesenteric ischemia, neoplasm, bowel obstruction or surgical abdomen. I have spoken with the patient and/or caregivers. I explained the patient's condition, diagnoses and treatment plan based on the information available to me at this time. I have answered the patient and/or caregiver's questions and addressed any concerns. The patient and/or caregivers have a good understanding of patient's diagnosis, condition and treatment plan as can be expected at this point. Vital signs have been stable. Patient's condition is stable and appropriate for discharge from the emergency department. Patient will pursue further outpatient evaluation with primary care physician or other designated or consulting physician as outlined in the discharge instructions. The patient and/or caregivers are agreeable to this plan of care and follow-up instructions have been explained in detail. The patient and/or caregivers have received these instructions in written form and have expressed an understanding of the discharge instructions. The patient and/or caregivers are aware that any significant change of condition or worsening of symptoms should prompt immediate return to this or the closest emergency department or call to 911. Slime Disclaimer: Slime Disclaimer: This electronic medical record was generated, in whole or in part, using a voice recognition dictation system. Departure Departure Impression: Primary Impression: Spontaneous Disposition: HOME / SELF CARE / HOMELESS Condition: STABLE Referrals: NO PCP (PCP) Follow-up with your primary care physician in 24 to 48 hours for reevaluation OR FOLLOW UP WITH FAMILY MEDICINE: [address] [facility] [address] [place] [address] Patient Instructions: Miscarriage Additional Instructions: FOLLOW UP WITH [facility] [facility] COOK: FOR DEFINITIVE MANAGEMENT of obstetric care/repeat beta-hcg level in 2-3 days (was 23 today) [facility] [address] [place] [address] EMERGENCY DEPARTMENT GENERAL DISCHARGE INSTRUCTIONS Thank you for coming to [facility] Emergency Department (ED) today and trusting us with you care. We trust that you had a positive experience in our Emergency Department. If you wish to speak to the department management, you may call the Director at [phone]. YOUR FOLLOW UP INSTRUCTIONS ARE FOLLOWS: 1. Do you have a private Doctor? If you do not have a private doctor, please ask for a resource list of physicians or clinics that may be able to assist you with follow up care. 2. The Emergency Physicain has interpreted your x-rays. The X-Ray specialist will also review them. If there is a change in the findings, you will be notified in 48 hours when at all possible. 3. A lab test or culture has been done, your results will be reviewed and you will be notified if you need a change in treatment. ADDITIONAL INSTRUCTIONS AND INFORMATION: 1. Your care today has been supervised by a physician who is specially trained in emergency care. Many problems require more than one evaluation for a complete diagnosis and treatment. We recommend that you schedule your follow up appointment as recommended to ensure complete treatment of you illness or injury. If you are unable to obtain follow up care and continue to have a problem, or if your condition worsens, we recommend that you return to the ED. 2. We are not able to safely determine your condition over the phone nor are we able to give sound medical advice over the phone. For these safety reasons, if you call for medical advice we will ask you to come to the ED for further evaluation. 3. If you have any questions regarding these discharge instructions please call the ED at [phone]. SAFETY INFORMATION: In the interest of safety, wellness, and injury prevention; we encourage you to wear your sealbelt, if you smoke; quite smoking, and we encourage family to use a protective helmet for bicycling and other sporting events that present an increased risk for head injury. IF YOUR SYMPTOMS WORSEN OR NEW SYMPTOMS DEVELOP, OR YOU HAVE CONCERNS ABOUT YOUR CONDITION; OR IF YOUR CONDITION WORSENS WHILE YOU ARE WAITING FOR YOUR FOLLOW UP APPOINTMENT; EITHER CONTACT YOUR PRIMARY CARE DOCTOR, THE PHYSICIAN WHOSE NAME AND NUMBER YOU WERE GIVEN, OR RETURN TO THE ED IMMEDIATELY. CORNELL KIDD DO Nov 02, 2021 11:48
== END 2021-11-02 12:00 | disposition home or self-care (01) ==
LOC: ER 09:32
DX: O03.9 Complete or unspecified spontaneous abortion without complication (principal)
CPT/HCPCS: 36415; 76817; 80053; 81001; 81025; 84702; 85025; 86850; 86900; 86901; 99284-25